=== PATIENT | female | born 1995 | race Caucasian/White ===

== ENCOUNTER → 2019-07-21 | Outpatient (CLI) | payer BC ==
[2019-07-21 19:49] LABS: CLUE CELLS PRESENT (Not Observd)
== END ==
LOC: LAB 19:42
PROVIDERS: Physician Assistant
DX: N89.8 Other specified noninflammatory disorders of vagina (principal)
CPT/HCPCS: Q0111

== ENCOUNTER → 2019-07-29 | Outpatient (CLI) | payer BC | LOC: LAB 19:07 | DX: N76.0 Acute vaginitis (principal); A74.9 Chlamydial infection, unspecified; Z72.51 High risk heterosexual behavior; A64 Unspecified sexually transmitted disease ==

== ENCOUNTER → 2019-08-20 | Outpatient (CLI) | payer BC ==
[2019-08-20 13:59] LABS: EOS # 0.1 (0.04-0.40); HEMATOCRIT 45.9 % (37.0-47.0); HEMOGLOBIN 14.8 g/dL (12.5-16.0); LYMPH# 2.3 (1.50-4.00); MEAN CELL VOLUME 86 fl (78-100); MEAN CORPUSCULAR HEMOGLOBIN 28 pg (27-31); MEAN CORPUSCULAR HGB CONC 32 g/dL (33-37); MEAN PLATELET VOLUME 10.6 fl (7.4-10.4); MONO # 0.8 (0.20-0.80); PLATELET COUNT 291 K/mm3 (130-400); RED BLOOD COUNT 5.36 M/mm3 (4.10-5.30); RED CELL DISTRIBUTION WIDTH 14.4 % (11.5-14.5); WHITE BLOOD COUNT 8.2 K/mm3 (4.8-10.8)
[2019-08-20 14:11] LABS: ALBUMIN 4.4 g/dL (3.5-5.0); POTASSIUM 4.1 mmol/L (3.5-5.1)
[2019-08-20 14:12] LABS: CALCIUM 9.8 mg/dL (8.3-10.5)
[2019-08-20 14:14] LABS: TOTAL PROTEIN 7.3 g/dL (6.4-8.3)
[2019-08-20 14:15] LABS: TOTAL BILIRUBIN 0.8 mg/dL (0.2-1.2)
== END ==
LOC: LAB 13:45
PROVIDERS: Physician Assistant
DX: Z13.220 Encounter for screening for lipoid disorders (principal); Z76.89 Persons encountering health services in other specified circumstances; F41.0 Panic disorder [episodic paroxysmal anxiety]; F41.9 Anxiety disorder, unspecified; Z83.2 Family history of diseases of the blood and blood-forming organs and certain disorders involving the immune mechanism

== ENCOUNTER → 2020-03-09 | Outpatient (CLI) | payer BC | LOC: LAB 12:54 | DX: J34.89 Other specified disorders of nose and nasal sinuses (principal); R50.9 Fever, unspecified; R52 Pain, unspecified; Z20.828 Contact with and (suspected) exposure to other viral communicable diseases ==

== ENCOUNTER 2024-03-10 17:12 | Emergency (ER) | payer BC ==
[~2024-03-10] VITALS: Ht 160 cm; Wt 93.6 kg
[~2024-03-10 17:12] MED LIST: VALTREX1 GM PO; ZOLOFT 100MG100 MG PO
[2024-03-10 17:20] VITALS: BP 173/88
[2024-03-10] MEDS ORDERED: HYDROXYZINE HCL25 M1 PO (17:20)
[2024-03-10] MEDS ORDERED: FLUOXETINE40 MG PO (17:20)
== END 2024-03-10 18:02 | disposition home or self-care (01) ==
LOC: ED 17:12
DX: Z30.432 Encounter for removal of intrauterine contraceptive device (principal)